=== PATIENT | male | born 1955 | race African-American/Black ===

== ENCOUNTER 2021-02-19 13:31 | Inpatient (IN) | payer MEDICARE, MEDICAID ==
[~2021-02-19] VITALS: Ht 190.5 cm; Wt 68.9 kg
[2021-02-19] MEDS ORDERED: SODIUM CHLORIDE 0.9% 1000ML BAG (SEPSIS BOLUS) IV ONE (14:00)
[2021-02-19 14:17] LABS: BG CARBOXYHEMOGLOBIN 2.1 % (0.5-1.5); BG DEOXYHEMOGLOBIN 3.6 % (0.0-5.0); BG FRACTION INSPIRED OXYGEN 21; BG HCO3 ACT 20.8 mmol/L (22.0-26.0); BG METHEMOGLOBIN 0.2 % (0.0-1.5); BG OXYGEN SATURATION 96.3 % (92.0-98.5); BG OXYHEMOGLOBIN 94.1 % (94.0-97.0); BG PCO2 33.6 mmHg (35.0-45.0); BG PH 7.409 (7.350-7.450); BG PO2 86.6 mmHg (75.0-100.0); BG SAMPLE SITE LEFT BRACHIAL; BG TOTAL HEMOGLOBIN 13.9 g/dL (12.0-18.0); BG VENT MODE ROOM AIR
[2021-02-19 14:28] LABS: BASOPHILS % 0.7 % (0.0-2.0); EOSINOPHILS % 1.1 % (0.0-5.0); HEMOGLOBIN. 13.8 g/dL (14.0-18.0); LYMPHOCYTES % 16.8 % (20.0-50.0); MEAN CORPUSCULAR HEMOGLOBIN 29.8 pg (28.0-32.0); MEAN CORPUSCULAR VOLUME 90.7 fL (80.0-94.0); MEAN PLATELET VOLUME 8.6 fl (7.4-10.4); MONOCYTES % 6.7 % (2.0-8.0); NEUTROPHILS % 74.7 % (40.0-76.0); PLATELET 288 x1000/uL (130-400); RED BLOOD CELL COUNT 4.63 mill/uL (4.7-6.1); RED CELL DISTRIBUTION WIDTH 14.6 % (11.6-14.6)
[2021-02-19 14:30] LABS: CHLORIDE 96 mEq/L (98-107); CLARITY URINE CLEAR (CLEAR); COLOR URINE YELLOW (YELLOW); KETONES URINE NEGATIVE (NEGATIVE); LEUKOCYTE ESTERASE URINE NEGATIVE (NEGATIVE); NITRITE URINE NEGATIVE (NEGATIVE); OCCULT BLOOD URINE NEGATIVE (NEGATIVE); PH URINE 5.5 (4.5-8.0); PROTEIN URINE NEGATIVE (NEGATIVE); UROBILINOGEN URINE 0.2 E.U./dL (0.2-1.0)
[2021-02-19 14:34] LABS: ETHANOL BLOOD < 10 mg/dL
[2021-02-19 14:40] LABS: PROTHROMBIN TIME 10.3 sec (9.6-11.0)
[2021-02-19] MEDS ORDERED: INSULIN REGULAR (HUMULIN R) 300UNITS/3ML VIAL IV SCH (15:00)
[2021-02-19] MEDS ORDERED: HYDROCODONE/ACETAMINOPHEN 10/325MG TABLET PO ONE (17:15)
[2021-02-19] MEDS ORDERED: ONDANSETRON HCL 4MG/2ML INJ IV PRN (18:00)
[2021-02-19] MEDS ORDERED: IPRATROPIUM/ALBUTEROL 0.5-3(2.5)MG/3ML NEB HHN PRN (18:00)
[2021-02-19] MEDS: SODIUM CHLORIDE 0.9% 1,000 ML IV SCH (19:06)
[2021-02-19 21:45] VITALS: BP 164/110
[2021-02-19 22:00] VITALS: BP 164/110
[2021-02-19] MEDS ORDERED: DEXTROSE 50% WATER 50ML SYRINGE IV PRN (22:15)
[2021-02-19] MEDS: BLOOD SUGAR DIAGNOSTIC STRIP TEST SCH (22:55)
[2021-02-19] MEDS: AMLODIPINE 5MG TABLET PO SCH (22:57)
[2021-02-19] MEDS: INSULIN GLARGINE UD 100 UNITS/ML SYR SUBCUT SCH (23:04)
[2021-02-19] MEDS: INSULIN LISPRO 100 UNITS/ML SUBCUT SCH (23:05)
[2021-02-19] MEDS ORDERED: HYDR-4350 MT (23:26)
[2021-02-19] MEDS: CLONIDINE 0.1MG TABLET PO PRN (23:53)
[2021-02-20] MEDS: ACETAMINOPHEN 325MG TABLET PO PRN (01:46)
[2021-02-20 04:00] VITALS: BP 158/112
[2021-02-20 06:20] LABS: BASOPHILS % 0.6 % (0.0-2.0); EOSINOPHILS % 2.8 % (0.0-5.0); HEMATOCRIT. 38.4 % (42.0-52.0); HEMOGLOBIN. 13.3 g/dL (14.0-18.0); LYMPHOCYTES % 17.5 % (20.0-50.0); MEAN CORPUSCULAR HEMOGLOBIN 30.4 pg (28.0-32.0); MEAN CORPUSCULAR VOLUME 87.9 fL (80.0-94.0); MEAN PLATELET VOLUME 8.5 fl (7.4-10.4); MONOCYTES % 5.4 % (2.0-8.0); NEUTROPHILS % 73.7 % (40.0-76.0); PLATELET 246 x1000/uL (130-400); RED BLOOD CELL COUNT 4.37 mill/uL (4.7-6.1); RED CELL DISTRIBUTION WIDTH 14.5 % (11.6-14.6)
[2021-02-20 06:26] LABS: CHLORIDE 110 mEq/L (98-107)
[2021-02-20] MEDS: BLOOD SUGAR DIAGNOSTIC STRIP TEST SCH ×4 (06:30→20:57)
[2021-02-20 06:40] LABS: LDL CHOLESTEROL 96 mg/dL (5-100)
[2021-02-20 06:42] LABS: HDL CHOLESTEROL 50 mg/dL (40-59)
[2021-02-20] MEDS: INSULIN LISPRO 100 UNITS/ML SUBCUT SCH ×4 (07:19→20:57)
[2021-02-20 08:00] VITALS: BP 145/111
[2021-02-20 08:01] LABS: *AMPHETAMINES SCREEN URINE NEGATIVE (NEGATIVE); *BARBITURATES SCREEN URINE NEGATIVE (NEGATIVE); *BENZODIAZEPINES SCREEN URINE NEGATIVE (NEGATIVE); *COCAINE SCREEN URINE NEGATIVE (NEGATIVE)
[2021-02-20 08:02] LABS: CANNABINOID URINE SCREEN PRESUMTIVE POSITIVE (NEGATIVE); METHADONE URINE SCREEN NEGATIVE (NEGATIVE); OPIATES URINE SCREEN NEGATIVE (NEGATIVE); PHENCYCLIDINE URINE SCREEN NEGATIVE (NEGATIVE)
[2021-02-20] MEDS ORDERED: INSULIN LISPRO 100 UNITS/ML SUBCUT SCH (08:20)
[2021-02-20] MEDS ORDERED: BLOOD SUGAR DIAGNOSTIC STRIP TEST SCH (09:00)
[2021-02-20] MEDS: AMLODIPINE 5MG TABLET PO SCH ×2 (09:36→20:50)
[2021-02-20] MEDS: INSULIN GLARGINE UD 100 UNITS/ML SYR SUBCUT SCH ×2 (09:40→23:00)
[2021-02-20] MEDS ORDERED: POTASSIUM CHLORIDE 20MEQ/PACKET PO SCH (11:00)
[2021-02-20] MEDS: HYDROCODONE/ACETAMINOPHEN 10/325MG TABLET PO PRN ×2 (11:27→20:50)
[2021-02-20 12:00] VITALS: BP 168/108
[2021-02-20] MEDS: CLONIDINE 0.1MG TABLET PO PRN (12:23)
[2021-02-20] MEDS: BENAZEPRIL 10MG TABLET PO SCH (14:15)
[2021-02-20 16:00] VITALS: BP 139/84
[2021-02-20 20:00] VITALS: BP 134/68
[2021-02-20] MEDS: SODIUM CHLORIDE 0.9% 1,000 ML IV SCH (20:49)
[2021-02-21] VITALS: BP 137/92
[2021-02-21 04:00] VITALS: BP 153/95
[2021-02-21] MEDS: HYDROCODONE/ACETAMINOPHEN 10/325MG TABLET PO PRN ×3 (04:18→21:12)
[2021-02-21] MEDS: INSULIN LISPRO 100 UNITS/ML SUBCUT SCH ×4 (06:52→21:07)
[2021-02-21] MEDS: BLOOD SUGAR DIAGNOSTIC STRIP TEST SCH ×4 (06:52→21:09)
[2021-02-21 08:00] VITALS: BP 135/96
[2021-02-21] MEDS: BENAZEPRIL 10MG TABLET PO SCH (08:38)
[2021-02-21] MEDS: AMLODIPINE 5MG TABLET PO SCH ×2 (08:38→21:08)
[2021-02-21] MEDS: SODIUM CHLORIDE 0.9% 1,000 ML IV SCH (08:39)
[2021-02-21] MEDS: INSULIN GLARGINE UD 100 UNITS/ML SYR SUBCUT SCH ×2 (09:26→21:08)
[2021-02-21] MEDS ORDERED: LANTUSUD SUBCUT ×2 (09:37)
[2021-02-21] MEDS ORDERED: AMLO5TAB88 PO (09:37)
[2021-02-21] MEDS ORDERED: METF-414 MT (09:37)
[2021-02-21] MEDS ORDERED: BENA10TA74 PO (09:37)
[2021-02-21 12:00] VITALS: BP 151/90
[2021-02-21 16:00] VITALS: BP 123/73
[2021-02-21] MEDS: ACETAMINOPHEN 325MG TABLET PO PRN (18:12)
[2021-02-21 20:00] VITALS: BP 137/84
[2021-02-22] VITALS: BP 140/92
[2021-02-22] MEDS: SODIUM CHLORIDE 0.9% 1,000 ML IV SCH ×2 (02:42→12:18)
[2021-02-22 04:00] VITALS: BP 163/110
[2021-02-22] MEDS: HYDROCODONE/ACETAMINOPHEN 10/325MG TABLET PO PRN ×3 (04:07→15:27)
[2021-02-22] MEDS: CLONIDINE 0.1MG TABLET PO PRN (04:08)
[2021-02-22] MEDS: BLOOD SUGAR DIAGNOSTIC STRIP TEST SCH ×2 (05:58→11:04)
[2021-02-22] MEDS: INSULIN LISPRO 100 UNITS/ML SUBCUT SCH ×2 (06:05→12:17)
[2021-02-22 08:00] VITALS: BP 136/85
[2021-02-22] MEDS: BENAZEPRIL 10MG TABLET PO SCH (08:35)
[2021-02-22] MEDS: AMLODIPINE 5MG TABLET PO SCH (08:35)
[2021-02-22] MEDS: INSULIN GLARGINE UD 100 UNITS/ML SYR SUBCUT SCH (09:16)
[2021-02-22 12:00] VITALS: BP 141/88
[2021-02-22] MEDS ORDERED: LANTUSUD SUBCUT (14:17)
[2021-02-22 15:01] VITALS: BP 141/88
[2021-02-22 15:27] VITALS: BP 141/88
[2021-02-22] MEDS ORDERED: INSULIN GLARGINE UD 100 UNITS/ML SYR SUBCUT SCH (22:00)
== END 2021-02-22 15:45 | disposition home or self-care (01) | DRG 638 ==
LOC: ER 14:10 → 5WST 17:37 → EDBEDREQTM 17:41 → EDBEDREQSVC 17:41 → EDBEDREQ 17:41 → ENRESERV 19:47
PROVIDERS: ADMIT Internal Medicine; ATTEND Internal Medicine
DX: E11.00 Type 2 diabetes mellitus with hyperosmolarity without nonketotic hyperglycemic-hyperosmolar coma (NKHHC) (principal); E87.1 Hypo-osmolality and hyponatremia; E87.2 Acidosis; R65.10 Systemic inflammatory response syndrome (SIRS) of non-infectious origin without acute organ dysfunction; E11.65 Type 2 diabetes mellitus with hyperglycemia; F17.200 Nicotine dependence, unspecified, uncomplicated; Z20.822 Contact with and (suspected) exposure to COVID-19; I10 Essential (primary) hypertension; G89.29 Other chronic pain; F32.9 Major depressive disorder, single episode, unspecified; J45.909 Unspecified asthma, uncomplicated; T38.3X6A Underdosing of insulin and oral hypoglycemic [antidiabetic] drugs, initial encounter; M54.9 Dorsalgia, unspecified; Z79.4 Long term (current) use of insulin; Z91.14 Patient's other noncompliance with medication regimen; Z59.0 Homelessness; Y92.89 Other specified places as the place of occurrence of the external cause
CPT/HCPCS: 36415; 36600; 71045; 80053; 80061; 80305; 80320; 81003; 82375; 82805; 82962; 83036; 83605; 83880; 84145; 84443; 84484; 85025; 87426; 93005; 93970; 99291; J1815; J7030; G0480

== ENCOUNTER 2021-07-15 18:55 | Inpatient (IN) | payer MEDICARE, MEDICAID ==
[~2021-07-15] VITALS: Ht 188 cm; Wt 63.5 kg
[~2021-07-15 18:55] MED LIST: AMLO5TAB88 PO; BENA10TA74 PO; HYDR-4350 MT; LANTUSUD SUBCUT; METF-414 MT
[2021-07-15] MEDS ORDERED: HYDROCODONE/ACETAMINOPHEN 5/325MG TABLET PO STA (19:20)
[2021-07-15] MEDS ORDERED: SODIUM CHLORIDE 0.9% 1,000 ML IV ONE (19:30)
[2021-07-15 20:07] LABS: BASOPHILS % 0.8 % (0.0-2.0); EOSINOPHILS % 0.7 % (0.0-5.0); HEMATOCRIT. 41.1 % (42.0-52.0); HEMOGLOBIN. 14.1 g/dL (14.0-18.0); LYMPHOCYTES % 21.9 % (20.0-50.0); MEAN CORPUSCULAR HEMOGLOBIN 30.4 pg (28.0-32.0); MEAN CORPUSCULAR VOLUME 88.7 fL (80.0-94.0); MONOCYTES % 7.9 % (2.0-8.0); NEUTROPHILS % 68.7 % (40.0-76.0); PLATELET 296 x1000/uL (130-400); RED BLOOD CELL COUNT 4.64 mill/uL (4.7-6.1); RED CELL DISTRIBUTION WIDTH 15.6 % (11.6-14.6)
[2021-07-15 20:13] LABS: CHLORIDE 100 mEq/L (98-107)
[2021-07-15] MEDS ORDERED: IOHEXOL-350 100 ML BOTTLE ONE (22:02)
[2021-07-16] MEDS ORDERED: INSULIN LISPRO 100 UNITS/ML SUBCUT SCH (00:15)
[2021-07-16 01:05] VITALS: BP 139/91
[2021-07-16] MEDS ORDERED: DEXTROSE 50% WATER 50ML SYRINGE IV PRN (03:30)
[2021-07-16] MEDS ORDERED: ACETAMINOPHEN 325MG TABLET PO PRN (03:30)
[2021-07-16 04:00] VITALS: BP 136/83
[2021-07-16] MEDS ORDERED: NALOXONE HCL 0.4 MG/ML 1ML VIAL IV PRN (04:15)
[2021-07-16] MEDS: BLOOD SUGAR DIAGNOSTIC STRIP TEST SCH ×4 (05:30→19:54)
[2021-07-16] MEDS: INSULIN LISPRO 100 UNITS/ML SUBCUT SCH ×4 (05:53→20:40)
[2021-07-16] MEDS: HYDROCODONE/ACETAMINOPHEN 5/325MG TABLET PO PRN ×4 (06:23→23:57)
[2021-07-16 08:00] VITALS: BP 156/101
[2021-07-16 08:05] LABS: *AMPHETAMINES SCREEN URINE NEGATIVE (NEGATIVE); *BARBITURATES SCREEN URINE NEGATIVE (NEGATIVE); *BENZODIAZEPINES SCREEN URINE NEGATIVE (NEGATIVE); *COCAINE SCREEN URINE NEGATIVE (NEGATIVE)
[2021-07-16 08:06] LABS: CANNABINOID URINE SCREEN PRESUMTIVE POSITIVE (NEGATIVE); METHADONE URINE SCREEN NEGATIVE (NEGATIVE); OPIATES URINE SCREEN PRESUMTIVE POSITIVE (NEGATIVE); PHENCYCLIDINE URINE SCREEN NEGATIVE (NEGATIVE)
[2021-07-16] MEDS: BENAZEPRIL 10MG TABLET PO SCH (09:04)
[2021-07-16] MEDS: AMLODIPINE 5MG TABLET PO SCH ×2 (09:05→20:57)
[2021-07-16] MEDS: METFORMIN HCL 500MG TABLET PO SCH ×2 (09:05→18:40)
[2021-07-16 12:00] VITALS: BP 135/96
[2021-07-16] MEDS: INSULIN GLARGINE UD 100 UNITS/ML SYR SUBCUT SCH ×2 (12:17→21:00)
[2021-07-16] MEDS ORDERED: IPRATROPIUM/ALBUTEROL 0.5-3(2.5)MG/3ML NEB HHN PRN (13:00)
[2021-07-16 16:00] VITALS: BP 127/81
[2021-07-16] MEDS ORDERED: ALBU18HF2 IH (18:16)
[2021-07-16] MEDS ORDERED: FLUT1DIS3 INH (18:16)
[2021-07-16 20:00] VITALS: BP 146/105
[2021-07-17] VITALS: BP 147/91
[2021-07-17 04:00] VITALS: BP 120/80
[2021-07-17] MEDS: BLOOD SUGAR DIAGNOSTIC STRIP TEST SCH ×2 (05:20→12:25)
[2021-07-17] MEDS: INSULIN LISPRO 100 UNITS/ML SUBCUT SCH ×2 (06:01→13:05)
[2021-07-17] MEDS: HYDROCODONE/ACETAMINOPHEN 5/325MG TABLET PO PRN (06:37)
[2021-07-17 08:00] VITALS: BP 137/95
[2021-07-17] MEDS: METFORMIN HCL 500MG TABLET PO SCH (08:47)
[2021-07-17] MEDS: AMLODIPINE 5MG TABLET PO SCH (08:47)
[2021-07-17] MEDS: BENAZEPRIL 10MG TABLET PO SCH (08:48)
[2021-07-17] MEDS: INSULIN GLARGINE UD 100 UNITS/ML SYR SUBCUT SCH (09:47)
[2021-07-17 11:32] VITALS: BP 105/111
[2021-07-17 12:00] VITALS: BP 156/111
[2021-07-17] MEDS ORDERED: HYDRALAZINE HCL 100MG TABLET PO SCH (13:00)
[2021-07-17] MEDS ORDERED: HYDR-4001 MT (14:00)
[2021-07-18] MEDS ORDERED: HYDR-4001 MT ×3 (02:05→02:12)
[2021-07-18] MEDS ORDERED: HYDR-4009 MT (02:28)
== END 2021-07-17 13:30 | disposition home or self-care (01) | DRG 190 ==
LOC: ER 18:55 → EDBEDREQTM 23:02 → EDBEDREQ 23:02 → ENRESERV 23:35 → 8WST 07-16 01:57
PROVIDERS: ADMIT Internal Medicine; ATTEND Internal Medicine
DX: J44.0 Chronic obstructive pulmonary disease with (acute) lower respiratory infection (principal); J18.9 Pneumonia, unspecified organism; E87.1 Hypo-osmolality and hyponatremia; I10 Essential (primary) hypertension; E11.9 Type 2 diabetes mellitus without complications; F12.90 Cannabis use, unspecified, uncomplicated; G89.29 Other chronic pain; M54.9 Dorsalgia, unspecified; F32.A Depression, unspecified; Z60.2 Problems related to living alone; F17.210 Nicotine dependence, cigarettes, uncomplicated; Z71.6 Tobacco abuse counseling; I25.2 Old myocardial infarction
CPT/HCPCS: 36415; 71045; 71275; 80053; 80305; 82962; 83036; 83605; 83880; 84443; 84484; 85025; 85379; 93005; 99285; J1815; J7030; Q9967

== ENCOUNTER 2021-07-17 20:41 | Emergency (ER) | payer MEDICAID, MEDICARE ==
[~2021-07-17] VITALS: Ht 188 cm; Wt 69.0 kg
[~2021-07-17 20:41] MED LIST changes: +ALBU18HF2 IH; +FLUT1DIS3 INH; +HYDR-4001 MT
[2021-07-17] MEDS ORDERED: ASPIRIN 81MG TABLET PO ONE (21:30)
[2021-07-17] MEDS ORDERED: IPRATROPIUM BROMIDE (0.02%) 0.5MG/2.5ML NEB HHN STA (22:13)
[2021-07-17] MEDS ORDERED: HYDROCODONE/ACETAMINOPHEN 10/325MG TABLET PO ONE (22:15)
[2021-07-17 23:07] VITALS: BP 121/90
[2021-07-18 00:15] LABS: BASOPHILS % 0.6 % (0.0-2.0); EOSINOPHILS % 0.6 % (0.0-5.0); HEMATOCRIT. 42.7 % (42.0-52.0); HEMOGLOBIN. 14.3 g/dL (14.0-18.0); LYMPHOCYTES % 16.1 % (20.0-50.0); MEAN CORPUSCULAR HEMOGLOBIN 29.5 pg (28.0-32.0); MEAN CORPUSCULAR VOLUME 87.9 fL (80.0-94.0); MEAN PLATELET VOLUME 7.7 fl (7.4-10.4); MONOCYTES % 8.4 % (2.0-8.0); NEUTROPHILS % 74.3 % (40.0-76.0); PLATELET 299 x1000/uL (130-400); RED BLOOD CELL COUNT 4.86 mill/uL (4.7-6.1); RED CELL DISTRIBUTION WIDTH 15.5 % (11.6-14.6)
[2021-07-18 00:20] LABS: CHLORIDE 103 mEq/L (98-107)
[2021-07-18] MEDS: ALBUTEROL (0.083%) 2.5MG/3ML NEB HHN SCH ×2 (01:03→01:37)
[2021-07-18] MEDS ORDERED: ALBUTEROL (0.083%) 2.5MG/3ML NEB ONE (01:44)
[2021-07-18] MEDS ORDERED: HYDR-4001 MT ×3 (02:05→02:12)
[2021-07-18] MEDS ORDERED: HYDR-4009 MT (02:28)
== END 2021-07-18 02:37 | disposition home or self-care (01) ==
LOC: ER 20:41
DX: J44.1 Chronic obstructive pulmonary disease with (acute) exacerbation (principal); I10 Essential (primary) hypertension; E11.9 Type 2 diabetes mellitus without complications; M54.89 Other dorsalgia; J98.11 Atelectasis; M79.18 Myalgia, other site; G89.29 Other chronic pain; Z98.890 Other specified postprocedural states
CPT/HCPCS: 36415; 71045; 80053; 83880; 84484; 85025; 93005; 94640; 99285

== ENCOUNTER 2021-07-22 17:20 | Emergency (ER) | payer MEDICARE, MEDICAID ==
[~2021-07-22] VITALS: Ht 188 cm; Wt 69.0 kg
[~2021-07-22 17:20] MED LIST changes: +HYDR-4009 MT
[2021-07-22] MEDS ORDERED: HYDR-4009 MT (20:05)
[2021-07-22] MEDS ORDERED: NALO4SPR BOTHNSTRLS (20:06)
[2021-07-22] MEDS ORDERED: HYDROCODONE/ACETAMINOPHEN 5/325MG TABLET PO ONE (20:15)
[2021-07-22 21:53] VITALS: BP 126/74
== END 2021-07-22 21:53 | disposition home or self-care (01) ==
LOC: ER 17:20
DX: M54.59 Other low back pain (principal)
CPT/HCPCS: 72100; 99283

== ENCOUNTER 2021-08-07 10:24 | Emergency (ER) | payer MEDICARE, MEDICAID ==
[~2021-08-07] VITALS: Ht 188 cm; Wt 68.0 kg
[~2021-08-07 10:24] MED LIST changes: +NALO4SPR BOTHNSTRLS
[2021-08-07 10:28] VITALS: BP 144/103
[2021-08-07] MEDS ORDERED: TOPUD MT (10:34)
[2021-08-07] MEDS ORDERED: HYDROCODONE/ACETAMINOPHEN 5/325MG TABLET PO ONE (10:45)
== END 2021-08-07 11:38 | disposition home or self-care (01) ==
LOC: ER 10:24
DX: G89.29 Other chronic pain (principal); M54.89 Other dorsalgia
CPT/HCPCS: 99282

== ENCOUNTER 2021-11-05 08:59 | Emergency (ER) | payer MEDICARE, MEDICAID ==
[~2021-11-05] VITALS: Ht 172.7 cm; Wt 70.0 kg
[~2021-11-05 08:59] MED LIST changes: +TOPUD MT
[2021-11-05] MEDS ORDERED: HYDROCODONE/ACETAMINOPHEN 10/325MG TABLET PO ONE (09:15)
[2021-11-05] MEDS ORDERED: METHOCARBAMOL 500MG TABLET PO ONE (11:00)
[2021-11-05 14:15] LABS: BASOPHILS % 0.9 % (0.0-2.0); EOSINOPHILS % 1.1 % (0.0-5.0); HEMATOCRIT. 41.1 % (42.0-52.0); HEMOGLOBIN. 13.9 g/dL (14.0-18.0); LYMPHOCYTES % 20.7 % (20.0-50.0); MEAN CORPUSCULAR HEMOGLOBIN 29.2 pg (28.0-32.0); MEAN CORPUSCULAR VOLUME 86.5 fL (80.0-94.0); MEAN PLATELET VOLUME 7.1 fl (7.4-10.4); MONOCYTES % 8.6 % (2.0-8.0); NEUTROPHILS % 68.7 % (40.0-76.0); PLATELET 278 x1000/uL (130-400); RED BLOOD CELL COUNT 4.75 mill/uL (4.7-6.1); RED CELL DISTRIBUTION WIDTH 14.7 % (11.6-14.6)
[2021-11-05 14:21] LABS: CHLORIDE 102 mEq/L (98-107)
[2021-11-05 14:27] LABS: C REACTIVE PROTEIN QUANT 0.5 mg/L (0.0-3.0)
[2021-11-05] MEDS ORDERED: HYDR-4009 MT (15:12)
[2021-11-05] MEDS ORDERED: ACETAMINOPHEN 325MG TABLET PO ONE (17:30)
[2021-11-05] MEDS ORDERED: HYDRALAZINE 20MG/ML VIAL IV ONE (19:15)
[2021-11-05 19:17] VITALS: BP 170/123
== END 2021-11-05 20:48 ==
LOC: ER 08:59
DX: G89.29 Other chronic pain (principal); M25.551 Pain in right hip; I10 Essential (primary) hypertension; E11.9 Type 2 diabetes mellitus without complications; J45.909 Unspecified asthma, uncomplicated; W18.39XA Other fall on same level, initial encounter; Y93.89 Activity, other specified; Y92.89 Other specified places as the place of occurrence of the external cause; Y99.8 Other external cause status; Z79.899 Other long term (current) drug therapy
CPT/HCPCS: 36415; 72125; 73502; 80053; 85025; 85651; 86140; 96374; 99285; J0360

== ENCOUNTER 2024-10-25 15:13 | Inpatient (IN) | payer BC, MEDICAID, MEDICARE ==
[~2024-10-25] VITALS: Ht 185.4 cm; Wt 61.7 kg
[2024-10-25 15:54] LABS: BASOPHILS % 0.5 % (0.0-2.0); EOSINOPHILS % 0.3 % (0.0-5.0); HEMATOCRIT. 46.5 % (42.0-52.0); HEMOGLOBIN. 15.7 g/dL (14.0-18.0); LYMPHOCYTES % 13.8 % (20.0-50.0); MEAN CORPUSCULAR HEMOGLOBIN 30.1 pg (28.0-32.0); MEAN CORPUSCULAR HGB CONC 33.8 g/dL (31.0-37.0); MEAN PLATELET VOLUME 8.3 fl (7.4-10.4); MONOCYTES % 7.1 % (2.0-8.0); NEUTROPHILS % 78.3 % (40.0-76.0); PLATELET 292 x1000/uL (130-400); RED BLOOD CELL COUNT 5.23 mill/uL (4.7-6.1); WHITE BLOOD COUNT 10.7 x1000/uL (4.5-11.0)
[2024-10-25 16:02] LABS: CHLORIDE 86 mEq/L (98-107); POTASSIUM 3.1 mEq/L (3.5-5.1); SODIUM 127 mEq/L (136-145)
[2024-10-25 16:03] LABS: CALCIUM 9.6 mg/dL (8.7-10.4); CARBON DIOXIDE 31 mEq/L (21-32)
[2024-10-25 16:08] LABS: CREATININE 1.4 mg/dL (0.6-1.3); GLUCOSE 337 mg/dL (70-105); UREA NITROGEN BLOOD 14 mg/dL (9-23)
[2024-10-25] MEDS: INSULIN REGULAR (HUMULIN R) 1000UNITS/10ML VIAL SUBCUT SCH (16:50)
[2024-10-25] MEDS: SODIUM CHLORIDE 0.9% 1,000 ML IV ONE (16:51)
[2024-10-25] MEDS: METFORMIN HCL 500MG TABLET PO SCH (17:06)
[2024-10-25 17:11] LABS: TROPONIN I HIGH SENSITIVITY 18 ng/L (3.0-53)
[2024-10-25] MEDS: ACETAMINOPHEN 650MG/20.3ML UDC PO NR (17:13)
[2024-10-25 18:20] VITALS: PULSE 97; RESP 20; O2SAT 100
[2024-10-25] MEDS: IPRATROPIUM/ALBUTEROL 0.5-3(2.5)MG/3ML NEB HHN NR (18:20)
[2024-10-25] MEDS ORDERED: POTASSIUM CHLORIDE 40 MEQ in DEXT 5% WATER 230 ML IV ONE (19:30)
[2024-10-25] MEDS ORDERED: CLONIDINE 0.1MG TABLET PO PRN (19:30)
[2024-10-25] MEDS ORDERED: MAGNESIUM/ALUMINUM HYDROXIDE/SIMETHICONE 30ML UDC PO PRN (19:30)
[2024-10-25] MEDS ORDERED: DOCUSATE SODIUM 100MG CAPSULE PO PRN (19:30)
[2024-10-25] MEDS ORDERED: IPRATROPIUM/ALBUTEROL 0.5-3(2.5)MG/3ML NEB HHN PRN (19:30)
[2024-10-25] MEDS ORDERED: DEXTROSE 50% WATER 50ML SYRINGE IV PRN (19:30)
[2024-10-25] MEDS ORDERED: ACETAMINOPHEN 325MG TABLET PO PRN (19:30)
[2024-10-25] MEDS ORDERED: ONDANSETRON HCL 4MG/2ML INJ IV PRN (19:30)
[2024-10-25 19:38] LABS: GLUCOSE URINE 3+ (NEGATIVE); KETONES URINE NEGATIVE (NEGATIVE)
[2024-10-25 19:58] LABS: BETA HYDROXYBUTYRATE 0.8 mMol/L (0.0-0.3); PHOSPHORUS 3.3 mg/dL (2.5-4.9)
[2024-10-25] MEDS ORDERED: SODIUM CHLORIDE 0.9% 1,000 ML IV SCH (20:00)
[2024-10-25] MEDS ORDERED: NALOXONE HCL 0.4MG/ML VIAL IV PRN (20:30)
[2024-10-25 20:39] LABS: CLARITY URINE CLEAR (CLEAR); COLOR URINE YELLOW (YELLOW); PH URINE 5.5 (4.5-8.0)
[2024-10-25 20:40] LABS: LEUKOCYTE ESTERASE URINE NEGATIVE (NEGATIVE); NITRITE URINE NEGATIVE (NEGATIVE); OCCULT BLOOD URINE NEGATIVE (NEGATIVE); PROTEIN URINE NEGATIVE (NEGATIVE)
[2024-10-25 20:42] LABS: BACTERIA URINE TRACE; RBC URINE 0-2 /hpf (0-2); SQUAMOUS EPITHELIAL CELL URINE RARE /lpf (RARE/1+); WBC URINE 0-2 /hpf (0-2)
[2024-10-25] MEDS: HYDROCODONE/ACETAMINOPHEN 7.5/325MG TABLET PO PRN (20:44)
[2024-10-25] MEDS: BLOOD SUGAR DIAGNOSTIC STRIP TEST SCH (21:00)
[2024-10-25 22:02] VITALS: BP 120/82; PULSE 18; TEMP 36.5; O2SAT 96
[2024-10-25] MEDS ORDERED: IOHEXOL-300 100 ML BOTTLE ONE (22:49)
[2024-10-25] MEDS: AMLODIPINE 5MG TABLET PO SCH (22:56)
[2024-10-25] MEDS: FAMOTIDINE 20MG TABLET PO SCH (22:56)
[2024-10-25] MEDS: KCL 20MEQ/100ML X 2 FOR TOTAL KCL 40MEQ/200ML IV SCH (22:57)
[2024-10-25] MEDS: SODIUM CHLORIDE 0.9% 1,000 ML IV SCH (22:58)
[2024-10-25] MEDS: INSULIN LISPRO 100 UNITS/ML SUBCUT SCH (23:04)
[2024-10-25 23:36] LABS: TRIGLYCERIDE 82 mg/dL (0-150)
[2024-10-25 23:37] LABS: LDL CHOLESTEROL 58 mg/dL (5-100)
[2024-10-25 23:38] LABS: ALANINE AMINOTRANSFERASE 8 IU/L (10-49); ASPARTATE AMINOTRANSFERASE 15 IU/L (<34); BILIRUBIN DIRECT 0.4 mg/dL (<=3.0); BILIRUBIN TOTAL 0.8 mg/dL (0.1-1.0); CHOLESTEROL 123 mg/dL (<200); HDL CHOLESTEROL 29 mg/dL (>55); PROTEIN TOTAL 6.5 g/dL (6.0-8.3)
[2024-10-25 23:39] LABS: CREATINE KINASE MB FRACTION 0.8 ng/mL (0.5-3.6); TROPONIN I HIGH SENSITIVITY 17 ng/L (3.0-53)
[2024-10-25 23:51] VITALS: BP 120/82; PULSE 89; RESP 18; TEMP 36.5
[2024-10-26] VITALS: BP 130/79; PULSE 100; RESP 18; TEMP 36.6; O2SAT 97
[2024-10-26] MEDS ORDERED: METO-539 MT (00:46)
[2024-10-26] MEDS ORDERED: PANT40TA51 PO (00:49)
[2024-10-26] MEDS ORDERED: POTA15TA11 PO (00:50)
[2024-10-26] MEDS ORDERED: AMIN30LI2 PO (00:50)
[2024-10-26] MEDS ORDERED: ASPI-1497 PO (00:53)
[2024-10-26] MEDS ORDERED: ATOR40TA70 PO (00:53)
[2024-10-26] MEDS ORDERED: INSU100I24 SQ (00:55)
[2024-10-26] MEDS ORDERED: FURO40TA5 PO (00:55)
[2024-10-26] MEDS ORDERED: INSU100V33 SQ (00:55)
[2024-10-26] MEDS ORDERED: METH-774 MT (00:55)
[2024-10-26] MEDS ORDERED: GABA-529 PO (00:55)
[2024-10-26 04:00] VITALS: BP 151/84; PULSE 92; RESP 18; TEMP 36.2; O2SAT 98
[2024-10-26 06:23] LABS: HEMOGLOBIN 13.8 g/dL (14.0-18.0); MEAN CORPUSCULAR HEMOGLOBIN 29.2 pg (28.0-32.0); MEAN CORPUSCULAR HGB CONC 33.7 g/dL (31.0-37.0); MEAN CORPUSCULAR VOLUME 86.6 fL (80.0-94.0); PLATELET 237 x1000/uL (130-400); RED BLOOD CELL COUNT 4.73 mill/uL (4.7-6.1); RED CELL DISTRIBUTION WIDTH 13.9 % (11.6-14.6); WHITE BLOOD COUNT 6.4 x1000/uL (4.5-11.0)
[2024-10-26 06:35] LABS: CARBON DIOXIDE 32 mEq/L (21-32); CHLORIDE 95 mEq/L (98-107); CREATINE KINASE MB FRACTION 0.9 ng/mL (0.5-3.6); POTASSIUM 3.3 mEq/L (3.5-5.1); SODIUM 134 mEq/L (136-145)
[2024-10-26] MEDS: POTASSIUM CHLORIDE 20MEQ/PACKET PO NR (06:35)
[2024-10-26 06:36] LABS: TROPONIN I HIGH SENSITIVITY 18 ng/L (3.0-53)
[2024-10-26 06:37] LABS: CALCIUM 8.8 mg/dL (8.7-10.4)
[2024-10-26 06:41] LABS: CREATININE 0.8 mg/dL (0.6-1.3)
[2024-10-26 06:42] LABS: UREA NITROGEN BLOOD 11 mg/dL (9-23)
[2024-10-26 07:04] LABS: GLUCOSE 146 mg/dL (70-105)
[2024-10-26 08:00] VITALS: BP 152/93; PULSE 87; RESP 18; TEMP 36.5; O2SAT 94
[2024-10-26] MEDS ORDERED: LOTEN PO SCH (09:00)
[2024-10-26] MEDS: LACTULOSE 20G/30ML UDC PO SCH (09:45)
[2024-10-26 10:22] LABS: *AMPHETAMINES SCREEN URINE NEGATIVE (NEGATIVE); *BENZODIAZEPINES SCREEN URINE NEGATIVE (NEGATIVE)
[2024-10-26 10:23] LABS: *BARBITURATES SCREEN URINE NEGATIVE (NEGATIVE); *COCAINE SCREEN URINE NEGATIVE (NEGATIVE); CANNABINOID URINE SCREEN PRESUMPTIVE POSITIVE (NEGATIVE); ECSTASY MDMA SCREEN URINE NEGATIVE (NEGATIVE); METHADONE URINE SCREEN NEGATIVE (NEGATIVE); OPIATES URINE SCREEN PRESUMPTIVE POSITIVE (NEGATIVE); PHENCYCLIDINE URINE SCREEN NEGATIVE (NEGATIVE)
[2024-10-26] MEDS: ENOXAPARIN 40MG/0.4ML SYR SUBCUT SCH (10:42)
[2024-10-26] MEDS: LISINOPRIL 20MG TABLET PO SCH (10:42)
[2024-10-26 12:00] VITALS: BP 147/95; PULSE 92; RESP 17; TEMP 36.6; O2SAT 96
[2024-10-26 16:00] VITALS: BP 128/87; PULSE 93; RESP 18; TEMP 36.6; O2SAT 97
[2024-10-26] MEDS: INSULIN LISPRO 100 UNITS/ML SUBCUT SCH (16:56)
[2024-10-26] MEDS: POLYETHYLENE GLYCOL 3350 (17GM) 1 DOSE PACK PO SCH (17:01)
[2024-10-26 20:00] VITALS: BP 88/55; PULSE 99; RESP 19; TEMP 36.8; O2SAT 95
[2024-10-26] MEDS: INSULIN GLARGINE 100 UNITS/ML SUBCUT SCH (21:58)
[2024-10-27] VITALS: BP 94/63; PULSE 91; RESP 18; TEMP 36.4; O2SAT 98
[2024-10-27] MEDS: ACETAMINOPHEN 325MG TABLET PO PRN (00:54)
[2024-10-27 04:00] VITALS: BP 104/67; PULSE 89; RESP 18; TEMP 36.8; O2SAT 96
[2024-10-27 07:04] LABS: CALCIUM 8.7 mg/dL (8.7-10.4); CHLORIDE 93 mEq/L (98-107); POTASSIUM 3.6 mEq/L (3.5-5.1); SODIUM 131 mEq/L (136-145)
[2024-10-27 07:05] LABS: CARBON DIOXIDE 29 mEq/L (21-32)
[2024-10-27 07:10] LABS: CREATININE 0.9 mg/dL (0.6-1.3); GLUCOSE 224 mg/dL (70-105); UREA NITROGEN BLOOD 11 mg/dL (9-23)
[2024-10-27 07:19] LABS: BASOPHILS % 0.5 % (0.0-2.0); EOSINOPHILS % 1.5 % (0.0-5.0); HEMATOCRIT. 39.3 % (42.0-52.0); HEMOGLOBIN. 13.2 g/dL (14.0-18.0); LYMPHOCYTES % 27.6 % (20.0-50.0); MEAN CORPUSCULAR HEMOGLOBIN 29.4 pg (28.0-32.0); MEAN CORPUSCULAR HGB CONC 33.6 g/dL (31.0-37.0); MEAN CORPUSCULAR VOLUME 87.4 fL (80.0-94.0); MEAN PLATELET VOLUME 8.4 fl (7.4-10.4); MONOCYTES % 6.8 % (2.0-8.0); NEUTROPHILS % 63.6 % (40.0-76.0); PLATELET 232 x1000/uL (130-400); WHITE BLOOD COUNT 6.3 x1000/uL (4.5-11.0)
[2024-10-27 08:00] VITALS: BP 134/83; PULSE 92; RESP 16; TEMP 36.7; O2SAT 100
[2024-10-27] MEDS ORDERED: ASPIRIN 81MG TABLET PO SCH (09:00)
[2024-10-27 12:00] VITALS: BP 126/75; PULSE 90; RESP 16; TEMP 36.6; O2SAT 98
[2024-10-27 16:00] VITALS: BP 139/80; PULSE 96; RESP 18; TEMP 36.4; O2SAT 100
[2024-10-27 20:00] VITALS: BP 103/71; PULSE 114; RESP 20; TEMP 36.4; O2SAT 93
[2024-10-28] VITALS (7 sets, daily range): BP systolic 91–156; BP diastolic 56–94; PULSE 84–100; RESP 17–20; TEMP 36.2–36.6; O2SAT 95–100
[2024-10-28 09:07] LABS: IMMUNOGLOBULIN A 153 mg/dL (61-437); IMMUNOGLOBULIN G 705 mg/dL (603-1613); IMMUNOGLOBULIN M 52 mg/dL (15-143)
[2024-10-28] MEDS: INSULIN LISPRO 100 UNITS/ML SUBCUT SCH (12:45)
[2024-10-28 17:01] LABS: BASOPHILS % 0.5 % (0.0-2.0); EOSINOPHILS % 1.5 % (0.0-5.0); HEMATOCRIT. 40.4 % (42.0-52.0); HEMOGLOBIN. 13.3 g/dL (14.0-18.0); LYMPHOCYTES % 29.2 % (20.0-50.0); MEAN CORPUSCULAR HGB CONC 32.9 g/dL (31.0-37.0); MEAN CORPUSCULAR VOLUME 88.4 fL (80.0-94.0); MEAN PLATELET VOLUME 8.3 fl (7.4-10.4); MONOCYTES % 8.4 % (2.0-8.0); NEUTROPHILS % 60.4 % (40.0-76.0); PLATELET 276 x1000/uL (130-400); RED BLOOD CELL COUNT 4.57 mill/uL (4.7-6.1); RED CELL DISTRIBUTION WIDTH 13.8 % (11.6-14.6); WHITE BLOOD COUNT 5.4 x1000/uL (4.5-11.0)
[2024-10-28 17:10] LABS: CHLORIDE 100 mEq/L (98-107); POTASSIUM 4.5 mEq/L (3.5-5.1); SODIUM 138 mEq/L (136-145)
[2024-10-28 17:11] LABS: CALCIUM 9.5 mg/dL (8.7-10.4); CARBON DIOXIDE 28 mEq/L (21-32)
[2024-10-28 17:16] LABS: CREATININE 0.7 mg/dL (0.6-1.3); GLUCOSE 124 mg/dL (70-105)
[2024-10-28 17:17] LABS: UREA NITROGEN BLOOD 8 mg/dL (9-23)
== END 2024-10-28 18:40 | disposition home health service (06) | DRG 918 ==
LOC: ER 15:13 → EDBEDREQTM 18:53 → EDBEDREQSVC 18:53 → EDBEDREQ 18:53 → 8WST 21:57
PROVIDERS: ADMIT Hospitalist; ATTEND Hospitalist
DX: T40.601A Poisoning by unspecified narcotics, accidental (unintentional), initial encounter (principal); N17.9 Acute kidney failure, unspecified; E87.1 Hypo-osmolality and hyponatremia; R64 Cachexia; Z68.1 Body mass index [BMI] 19.9 or less, adult; R53.1 Weakness; E86.0 Dehydration; E87.6 Hypokalemia; R91.1 Solitary pulmonary nodule; R62.7 Adult failure to thrive; J44.89 Other specified chronic obstructive pulmonary disease; K59.03 Drug induced constipation; G89.29 Other chronic pain; E11.65 Type 2 diabetes mellitus with hyperglycemia; I25.10 Atherosclerotic heart disease of native coronary artery without angina pectoris; Z85.46 Personal history of malignant neoplasm of prostate; D64.9 Anemia, unspecified; N18.9 Chronic kidney disease, unspecified; E11.22 Type 2 diabetes mellitus with diabetic chronic kidney disease; I12.9 Hypertensive chronic kidney disease with stage 1 through stage 4 chronic kidney disease, or unspecified chronic kidney disease; F17.210 Nicotine dependence, cigarettes, uncomplicated; N40.0 Benign prostatic hyperplasia without lower urinary tract symptoms; J47.9 Bronchiectasis, uncomplicated; T40.2X5A Adverse effect of other opioids, initial encounter; Z71.6 Tobacco abuse counseling; Z79.4 Long term (current) use of insulin; Z79.51 Long term (current) use of inhaled steroids; Z79.84 Long term (current) use of oral hypoglycemic drugs; Z79.899 Other long term (current) drug therapy; Z99.3 Dependence on wheelchair; Z99.81 Dependence on supplemental oxygen; Y92.89 Other specified places as the place of occurrence of the external cause
CPT/HCPCS: 36415; 71045; 71260; 74176; 80048; 80061; 80076; 80305; 81003; 82010; 82306; 82553; 82784; 82962; 83036; 83735; 83880; 83930; 83935; 84100; 84134; 84153; 84484; 85025; 85027; 86334; 93005; 93306; 93970; 94664; 97162; 97166; 99285; C1893; J1650; J1815; J3480; Q9967

== ENCOUNTER 2025-01-02 13:51 | Inpatient (IN) | payer MEDICARE, MEDICAID ==
[~2025-01-02] VITALS: Ht 190.5 cm; Wt 59.0 kg
[~2025-01-02 13:51] MED LIST changes: +AMIN30LI2 PO; +ASPI-1497 PO; +ATOR40TA70 PO; +FURO40TA5 PO; +GABA-529 PO; +INSU100I24 SQ; +INSU100V33 SQ; +METH-774 MT; +METO-539 MT; +PANT40TA51 PO; +POTA15TA11 PO
[2025-01-02] MEDS ORDERED: BACITRACIN ZINC OINT UDPKT TOP ONE (19:00)
[2025-01-02 19:02] LABS: BASOPHILS % 0.5 % (0.0-2.0); EOSINOPHILS % 0.4 % (0.0-5.0); HEMATOCRIT. 47.3 % (42.0-52.0); LYMPHOCYTES % 14.2 % (20.0-50.0); MEAN CORPUSCULAR HEMOGLOBIN 29.6 pg (28.0-32.0); MEAN CORPUSCULAR HGB CONC 33.7 g/dL (31.0-37.0); MEAN CORPUSCULAR VOLUME 87.8 fL (80.0-94.0); MEAN PLATELET VOLUME 8.4 fl (7.4-10.4); MONOCYTES % 6.9 % (2.0-8.0); PLATELET 303 x1000/uL (130-400); RED BLOOD CELL COUNT 5.39 mill/uL (4.7-6.1); RED CELL DISTRIBUTION WIDTH 13.8 % (11.6-14.6); WHITE BLOOD COUNT 7.7 x1000/uL (4.5-11.0)
[2025-01-02 19:08] LABS: CHLORIDE 90 mEq/L (98-107); SODIUM 134 mEq/L (136-145)
[2025-01-02 19:09] LABS: CALCIUM 9.4 mg/dL (8.7-10.4); CARBON DIOXIDE 34 mEq/L (21-32)
[2025-01-02 19:14] LABS: CREATININE 1.1 mg/dL (0.6-1.3); UREA NITROGEN BLOOD 6 mg/dL (9-23)
[2025-01-02 19:15] LABS: INR 0.9; PROTHROMBIN TIME 10.2 sec (9.6-11.0)
[2025-01-02 19:16] LABS: ALANINE AMINOTRANSFERASE 12 IU/L (10-49); ALBUMIN 4.9 g/dL (3.2-4.8); ASPARTATE AMINOTRANSFERASE 14 IU/L (<34); BILIRUBIN DIRECT 0.2 mg/dL (<=3.0); BILIRUBIN TOTAL 0.6 mg/dL (0.1-1.0); PROTEIN TOTAL 7.7 g/dL (6.0-8.3)
[2025-01-02 19:23] LABS: GLUCOSE 576 mg/dL (70-105); POTASSIUM 2.6 mEq/L (3.5-5.1)
[2025-01-02] MEDS: HYDROCODONE/ACETAMINOPHEN 5/325MG TABLET PO ONE (20:58)
[2025-01-02] MEDS: POTASSIUM CHLORIDE 20MEQ TABLET SR PO ONE (20:58)
[2025-01-02] MEDS: INSULIN LISPRO 100 UNITS/ML SUBCUT STA (21:12)
[2025-01-02] MEDS ORDERED: DEXTROSE 50% WATER 50ML SYRINGE IV PRN ×2 (21:15→21:45)
[2025-01-02] MEDS: TETANUS, DIPHTHERIA, PERTUSSIS VAC/PF 0.5ML (>10YR OLD) IM ONE (21:35)
[2025-01-02] MEDS: SODIUM CHLORIDE 0.9% 1,000 ML IV ONE (21:36)
[2025-01-02] MEDS ORDERED: ONDANSETRON HCL 4MG/2ML INJ IV PRN (21:45)
[2025-01-02] MEDS ORDERED: GUAIFENESIN 200MG/10ML SUGAR FREE UDC PO PRN (21:45)
[2025-01-02] MEDS ORDERED: ACETAMINOPHEN 325MG TABLET PO PRN (21:45)
[2025-01-02] MEDS ORDERED: DOCUSATE SODIUM 100MG CAPSULE PO PRN (21:45)
[2025-01-02] MEDS ORDERED: IPRATROPIUM/ALBUTEROL 0.5-3(2.5)MG/3ML NEB HHN PRN (21:45)
[2025-01-02] MEDS: KCL 10MEQ/50ML PREMIX 50 ML IV SCH (21:57)
[2025-01-02] MEDS: CEFTRIAXONE 2GM/50ML 50 ML IV ONE (21:57)
[2025-01-02] MEDS ORDERED: INSULIN GLARGINE 100 UNITS/ML SUBCUT SCH (22:00)
[2025-01-02] MEDS ORDERED: CEFTRIAXONE 2GM/50ML 50 ML IV NR (22:00)
[2025-01-02] MEDS: BACITRACIN ZINC OINT UDPKT TOP ONE (22:11)
[2025-01-02] MEDS ORDERED: BACITRACIN ZINC OINT UDPKT TOP NR (22:15)
[2025-01-02] MEDS: AMLODIPINE 5MG TABLET PO SCH (22:59)
[2025-01-02] MEDS: METOPROLOL TARTRATE 50MG TABLET PO SCH (23:02)
[2025-01-02 23:16] LABS: PHOSPHORUS 2.7 mg/dL (2.5-4.9)
[2025-01-02 23:17] LABS: BETA HYDROXYBUTYRATE 0.4 mMol/L (0.0-0.3)
[2025-01-02] MEDS: HYDRALAZINE 20MG/ML VIAL IV PRN (23:35)
[2025-01-03] MEDS: ASPIRIN 81MG EC TABLET PO SCH (00:25)
[2025-01-03] MEDS: GABAPENTIN 100MG CAPSULE PO SCH (00:25)
[2025-01-03] MEDS: ATORVASTATIN CALCIUM 40MG TABLET PO SCH (00:25)
[2025-01-03] MEDS: SODIUM CHLORIDE 0.9% 1,000 ML IV SCH (00:26)
[2025-01-03] MEDS: INSULIN LISPRO 100 UNITS/ML SUBCUT SCH (00:30)
[2025-01-03] MEDS: BLOOD SUGAR DIAGNOSTIC STRIP TEST SCH (00:32)
[2025-01-03] MEDS: INSULIN REGULAR (HUMULIN R) 1000UNITS/10ML VIAL SUBCUT NR (00:54)
[2025-01-03 01:00] VITALS: BP 147/100; PULSE 91; RESP 20; TEMP 36.6
[2025-01-03 01:53] LABS: TROPONIN I HIGH SENSITIVITY 19 ng/L (3.0-53)
[2025-01-03 01:56] LABS: CREATINE KINASE 103 IU/L (46-171)
[2025-01-03] MEDS: VANCOMYCIN 1.5GM PMX (XELLIA) 300 ML IV NR (01:58)
[2025-01-03 02:41] LABS: CLARITY URINE CLEAR (CLEAR); COLOR URINE YELLOW (YELLOW); GLUCOSE URINE 3+ (NEGATIVE); KETONES URINE TRACE (NEGATIVE); LEUKOCYTE ESTERASE URINE NEGATIVE (NEGATIVE); NITRITE URINE NEGATIVE (NEGATIVE); OCCULT BLOOD URINE NEGATIVE (NEGATIVE); PH URINE 7.5 (4.5-8.0); PROTEIN URINE NEGATIVE (NEGATIVE); SPECIFIC GRAVITY URINE 1.028 (1.005-1.030)
[2025-01-03 02:53] LABS: BACTERIA URINE NONE SEEN; RBC URINE 0-2 /hpf (0-2); SQUAMOUS EPITHELIAL CELL URINE NONE SEEN /lpf (RARE/1+); WBC URINE 0-2 /hpf (0-2)
[2025-01-03] MEDS: HYDROCODONE/ACETAMINOPHEN 5/325MG TABLET PO PRN ×2 (03:17→21:22)
[2025-01-03 03:30] LABS: *AMPHETAMINES SCREEN URINE NEGATIVE (NEGATIVE); *BARBITURATES SCREEN URINE NEGATIVE (NEGATIVE); *BENZODIAZEPINES SCREEN URINE NEGATIVE (NEGATIVE); *COCAINE SCREEN URINE NEGATIVE (NEGATIVE); METHADONE URINE SCREEN NEGATIVE (NEGATIVE); OPIATES URINE SCREEN NEGATIVE (NEGATIVE); PHENCYCLIDINE URINE SCREEN NEGATIVE (NEGATIVE)
[2025-01-03 03:31] LABS: CANNABINOID URINE SCREEN PRESUMPTIVE POSITIVE (NEGATIVE); ECSTASY MDMA SCREEN URINE NEGATIVE (NEGATIVE)
[2025-01-03 03:47] VITALS: BP 112/76; PULSE 86; RESP 18; TEMP 37.1; O2SAT 100
[2025-01-03] MEDS: KCL 20MEQ/100ML PREMIX 100 ML IV SCH (04:19)
[2025-01-03] MEDS: PIPERACILLIN/TAZO 3.375G/50ML 50 ML IV SCH (05:36)
[2025-01-03 06:07] LABS: BASOPHILS % 0.5 % (0.0-2.0); HEMATOCRIT. 41.3 % (42.0-52.0); HEMOGLOBIN. 13.9 g/dL (14.0-18.0); LYMPHOCYTES % 18.9 % (20.0-50.0); MEAN CORPUSCULAR HEMOGLOBIN 28.8 pg (28.0-32.0); MEAN CORPUSCULAR HGB CONC 33.7 g/dL (31.0-37.0); MEAN CORPUSCULAR VOLUME 85.6 fL (80.0-94.0); MEAN PLATELET VOLUME 8.2 fl (7.4-10.4); MONOCYTES % 8.8 % (2.0-8.0); NEUTROPHILS % 70.8 % (40.0-76.0); PLATELET 313 x1000/uL (130-400); RED BLOOD CELL COUNT 4.83 mill/uL (4.7-6.1); RED CELL DISTRIBUTION WIDTH 13.9 % (11.6-14.6); WHITE BLOOD COUNT 8.8 x1000/uL (4.5-11.0)
[2025-01-03 06:19] LABS: THYROID STIMULATING HORMONE 1.67 uIU/mL (0.55-4.78)
[2025-01-03] MEDS ORDERED: INSULIN LISPRO 100 UNITS/ML SUBCUT SCH (08:10)
[2025-01-03 08:18] VITALS: BP 147/95; PULSE 99; RESP 20; TEMP 36.6; O2SAT 100
[2025-01-03] MEDS ORDERED: BLOOD SUGAR DIAGNOSTIC STRIP TEST SCH (09:00)
[2025-01-03] MEDS ORDERED: METOPROLOL TARTRATE 50MG TABLET PO SCH (09:00)
[2025-01-03] MEDS: PANTOPRAZOLE SODIUM 40 MG/VIAL IV SCH (09:37)
[2025-01-03] MEDS ORDERED: IOHEXOL-300 100 ML BOTTLE ONE (09:50)
[2025-01-03 11:06] LABS: CHLORIDE 99 mEq/L (98-107); SODIUM 138 mEq/L (136-145)
[2025-01-03 11:07] LABS: CALCIUM 8.8 mg/dL (8.7-10.4); CARBON DIOXIDE 29 mEq/L (21-32)
[2025-01-03 11:12] LABS: CREATININE 0.8 mg/dL (0.6-1.3); UREA NITROGEN BLOOD < 5 mg/dL (9-23)
[2025-01-03 11:21] LABS: GLUCOSE 346 mg/dL (70-105)
[2025-01-03 11:39] VITALS: BP 142/95; PULSE 89; RESP 20; TEMP 36.8; O2SAT 100
[2025-01-03] MEDS: POTASSIUM CHLORIDE 20MEQ TABLET SR PO NR (15:04)
[2025-01-03 16:11] VITALS: BP 176/100; PULSE 84; RESP 20; TEMP 36.4; O2SAT 98
[2025-01-03 20:00] VITALS: BP 157/107; PULSE 94; RESP 18; TEMP 36.9; O2SAT 98
[2025-01-03] MEDS ORDERED: NALOXONE HCL 0.4MG/ML VIAL IV PRN (20:15)
[2025-01-03] MEDS: LOPERAMIDE HCL 2MG CAPSULE PO NR (20:21)
[2025-01-03] MEDS: SILVER SULFADIAZINE 1% CREAM 25GM TOP SCH (20:21)
[2025-01-03] MEDS: INSULIN GLARGINE 100 UNITS/ML SUBCUT SCH (21:24)
[2025-01-04] VITALS: BP 130/83; PULSE 83; RESP 18; TEMP 37.2; O2SAT 100
[2025-01-04 04:00] VITALS: BP 121/71; PULSE 72; RESP 18; TEMP 36.6; O2SAT 100
[2025-01-04] MEDS: INSULIN LISPRO 100 UNITS/ML SUBCUT SCH (07:40)
[2025-01-04 08:00] VITALS: BP 148/89; PULSE 77; RESP 20; TEMP 36.6; O2SAT 100
[2025-01-04 12:00] VITALS: BP 135/81; PULSE 76; RESP 18; TEMP 36.6; O2SAT 100
[2025-01-04 16:00] VITALS: BP 135/83; PULSE 85; RESP 18; TEMP 36.7; O2SAT 100
[2025-01-04 16:59] LABS: CHLORIDE 101 mEq/L (98-107); POTASSIUM 3.4 mEq/L (3.5-5.1); SODIUM 138 mEq/L (136-145)
[2025-01-04 17:00] LABS: CALCIUM 8.3 mg/dL (8.7-10.4); CARBON DIOXIDE 30 mEq/L (21-32)
[2025-01-04 17:05] LABS: CREATININE 0.7 mg/dL (0.6-1.3); GLUCOSE 257 mg/dL (70-105); UREA NITROGEN BLOOD < 5 mg/dL (9-23)
[2025-01-04] MEDS: POTASSIUM CHLORIDE 20MEQ TABLET SR PO NR (19:04)
[2025-01-04 20:00] VITALS: BP 149/96; PULSE 71; RESP 18; TEMP 36.7; O2SAT 100
[2025-01-05] VITALS: BP 144/101; PULSE 86; RESP 18; TEMP 37; O2SAT 99
[2025-01-05 08:00] VITALS: BP 150/93; PULSE 67; RESP 20; TEMP 36.1; O2SAT 100
[2025-01-05] MEDS: MULTIVITAMINS,THER W-MINERALS TABLET PO SCH (08:24)
[2025-01-05 11:34] LABS: CHLORIDE 103 mEq/L (98-107); POTASSIUM 3.6 mEq/L (3.5-5.1); SODIUM 140 mEq/L (136-145)
[2025-01-05 11:35] LABS: CALCIUM 8.2 mg/dL (8.7-10.4); CARBON DIOXIDE 28 mEq/L (21-32)
[2025-01-05 11:40] LABS: CREATININE 0.7 mg/dL (0.6-1.3); GLUCOSE 166 mg/dL (70-105); UREA NITROGEN BLOOD 7 mg/dL (9-23)
[2025-01-05 12:00] VITALS: BP 143/89; PULSE 75; RESP 20; TEMP 36.7; O2SAT 100
[2025-01-05] MEDS ORDERED: SILV20CR13 TP (15:07)
[2025-01-05] MEDS ORDERED: AMOX1TAB49 MT (15:13)
[2025-01-05 16:00] VITALS: BP 122/81; PULSE 84; RESP 18; TEMP 36.7; O2SAT 99
[2025-01-05 20:00] VITALS: BP 162/105; PULSE 100; RESP 20; TEMP 36.3; O2SAT 97
[2025-01-06] VITALS: BP 139/105; PULSE 103; RESP 20; TEMP 36.6; O2SAT 97
[2025-01-06 04:00] VITALS: BP 142/96; PULSE 71; RESP 20; TEMP 36.7; O2SAT 96
[2025-01-06 08:00] VITALS: BP 178/111; PULSE 77; RESP 20; TEMP 36.6; O2SAT 97
[2025-01-06 12:00] VITALS: BP 139/91; PULSE 70; RESP 20; TEMP 36.6; O2SAT 99
[2025-01-06 16:00] VITALS: BP 130/93; PULSE 89; RESP 20; TEMP 36.6; O2SAT 99
[2025-01-06 16:42] VITALS: BP 130/93; PULSE 89; TEMP 98.1; O2SAT 99
== END 2025-01-06 19:30 | disposition home health service (06) | DRG 935 ==
LOC: ER 13:51 → EDBEDREQ 21:18 → EDBEDREQTM 21:18 → EDBEDREQSVC 21:18 → ENRESERV 21:21 → 7WST 22:14
PROVIDERS: ADMIT Internal Medicine; ATTEND Internal Medicine
DX: T20.22XA Burn of second degree of lip(s), initial encounter (principal); E87.1 Hypo-osmolality and hyponatremia; K29.70 Gastritis, unspecified, without bleeding; E87.6 Hypokalemia; I10 Essential (primary) hypertension; E11.65 Type 2 diabetes mellitus with hyperglycemia; G89.29 Other chronic pain; M54.9 Dorsalgia, unspecified; I25.10 Atherosclerotic heart disease of native coronary artery without angina pectoris; J44.9 Chronic obstructive pulmonary disease, unspecified; K52.9 Noninfective gastroenteritis and colitis, unspecified; T20.20XA Burn of second degree of head, face, and neck, unspecified site, initial encounter; T20.24XA Burn of second degree of nose (septum), initial encounter; X08.8XXA Exposure to other specified smoke, fire and flames, initial encounter; Y93.89 Activity, other specified; Y92.89 Other specified places as the place of occurrence of the external cause; Y99.8 Other external cause status; Z85.46 Personal history of malignant neoplasm of prostate; Z79.4 Long term (current) use of insulin; Z79.51 Long term (current) use of inhaled steroids; Z79.82 Long term (current) use of aspirin; Z79.899 Other long term (current) drug therapy; Z98.1 Arthrodesis status; Z99.81 Dependence on supplemental oxygen
CPT/HCPCS: 36415; 70487; 71045; 74018; 74176; 80048; 80061; 80076; 80305; 81003; 82010; 82550; 82962; 83036; 83735; 84100; 84134; 84145; 84443; 84484; 85025; 86850; 86900; 90715; 93970; 97110; 97163; 97166; 97530; 99291; J0360; J0696; J1815; J2470; J2543; J3370; J3480; J7030; Q9967

== ENCOUNTER 2025-05-14 12:24 | Inpatient (IN) | payer MEDICARE, MEDICAID ==
[~2025-05-14] VITALS: Ht 193 cm; Wt 51.7 kg
[~2025-05-14 12:24] MED LIST changes: -BENA10TA74 PO; +CIPR-263 MT; -FURO40TA5 PO; -HYDR-4001 MT; -HYDR-4009 MT; -INSU100I24 SQ; +INSU100I28 SQ; -METF-414 MT; +METF-416 MT; -METH-774 MT; +TAMS-54 MT
[2025-05-14] MEDS: CEFTRIAXONE 1GM/50ML 50 ML IV ONE (13:44)
[2025-05-14] MEDS: SODIUM CHLORIDE 0.9% (SEPSIS BOLUS) IV ONE (13:44)
[2025-05-14 13:46] LABS: BASOPHILS % 0.2 % (0.0-2.0); EOSINOPHILS % 0.5 % (0.0-5.0); HEMATOCRIT. 55.2 % (42.0-52.0); HEMOGLOBIN. 18.6 g/dL (14.0-18.0); LYMPHOCYTES % 20.9 % (20.0-50.0); MEAN PLATELET VOLUME 7.6 fl (7.4-10.4); MONOCYTES % 4.9 % (2.0-8.0); NEUTROPHILS % 73.5 % (40.0-76.0); PLATELET 383 x1000/uL (130-400); RED BLOOD CELL COUNT 6.46 mill/uL (4.7-6.1); RED CELL DISTRIBUTION WIDTH 15.4 % (11.6-14.6)
[2025-05-14 13:57] LABS: INR 1.0
[2025-05-14] MEDS: ACETAMINOPHEN 1000MG/100ML 100 ML IV ONE (14:01)
[2025-05-14] MEDS: KETOROLAC 30MG/ML VIAL IV ONE (14:02)
[2025-05-14 14:11] LABS: ETHANOL BLOOD < 10 mg/dL (<10); TROPONIN I HIGH SENSITIVITY 43 ng/L (3.0-53); UREA NITROGEN BLOOD 29 mg/dL (9-23)
[2025-05-14 14:12] LABS: ASPARTATE AMINOTRANSFERASE 50 IU/L (<34); BILIRUBIN DIRECT 0.6 mg/dL (<=3.0)
[2025-05-14 14:13] LABS: BILIRUBIN TOTAL 1.3 mg/dL (0.1-1.0)
[2025-05-14 14:17] LABS: CREATININE 1.8 mg/dL (0.6-1.3); PROTEIN TOTAL 8.6 g/dL (6.0-8.3)
[2025-05-14 15:37] LABS: BG BASE EXCESS -3.5 mmol/L (-2.0-3.0); BG CARBOXYHEMOGLOBIN 0.7 % (0.5-1.5); BG DEOXYHEMOGLOBIN 0.7 % (0.0-5.0); BG FLOW(L/min) 5.00 L/min; BG FRACTION INSPIRED OXYGEN 40; BG HCO3 ACT 20.1 mmol/L (21.0-28.0); BG METHEMOGLOBIN 0.3 % (0.5-1.5); BG OXYGEN SATURATION 99.3 % (94.0-98.0); BG OXYHEMOGLOBIN 98.3 % (94.0-98.0); BG PCO2 33.0 mmHg (35.0-48.0); BG PH 7.402 (7.350-7.450); BG PO2 192.0 mmHg (83.0-108.0); BG SAMPLE SITE RIGHT BRACHIAL; BG TOTAL HEMOGLOBIN 18.4 g/dL (13.5-17.5); BG VENT MODE NASAL CANNULA
[2025-05-14] MEDS ORDERED: ONDANSETRON HCL 4MG/2ML INJ IV PRN (16:15)
[2025-05-14] MEDS ORDERED: IPRATROPIUM/ALBUTEROL 0.5-3(2.5)MG/3ML NEB HHN PRN (16:15)
[2025-05-14] MEDS ORDERED: DOCUSATE SODIUM 100MG CAPSULE PO PRN (16:15)
[2025-05-14] MEDS ORDERED: GUAIFENESIN 200MG/10ML SUGAR FREE UDC PO PRN (16:15)
[2025-05-14] MEDS ORDERED: DEXTROSE 50% WATER 50ML SYRINGE IV PRN (16:15)
[2025-05-14] MEDS ORDERED: ACETAMINOPHEN 325MG TABLET PO PRN ×2 (16:15)
[2025-05-14] MEDS: SODIUM CHLORIDE 0.9% 500 ML IV ONE (16:45)
[2025-05-14 20:00] VITALS: BP 114/83; PULSE 105; PULSE 98; RESP 20; TEMP 35.1; TEMP 35.1392; O2SAT 98
[2025-05-14] MEDS: BLOOD SUGAR DIAGNOSTIC STRIP TEST SCH (21:45)
[2025-05-14] MEDS: ENOXAPARIN 30MG/0.3ML SYR SUBCUT SCH (22:46)
[2025-05-14] MEDS: INSULIN LISPRO 100 UNITS/ML SUBCUT SCH (22:47)
[2025-05-14] MEDS: VANCOMYCIN 1.25GM/250ML 250 ML IV SCH (23:32)
[2025-05-15] VITALS (7 sets, daily range): BP systolic 100–109; BP diastolic 65–82; PULSE 70–111; RESP 18–24; TEMP 35.3–36.7; O2SAT 20–98
[2025-05-15] MEDS: FOLIC ACID 1 MG, THIAMINE HCL 100 MG, MVI, ADULT NO.1 10 ML in DEXTROSE 5% WATER 1,000 ML IV ONE (01:55)
[2025-05-15] MEDS: HYDROCODONE/ACETAMINOPHEN 10/325MG TABLET PO PRN (02:27)
[2025-05-15] MEDS ORDERED: NALOXONE HCL 0.4MG/ML VIAL IV PRN (02:30)
[2025-05-15] MEDS: PIPERACILLIN/TAZO 3.375G/50ML 50 ML IV SCH ×2 (02:56→09:04)
[2025-05-15] MEDS: POLYETHYLENE GLYCOL 3350 (17GM) 1 DOSE PACK PO SCH (09:03)
[2025-05-15] MEDS: TAMSULOSIN HCL 0.4MG SR CAPSULE PO SCH (09:04)
[2025-05-15 10:25] LABS: BASOPHILS % 0.1 % (0.0-2.0); EOSINOPHILS % 0.1 % (0.0-5.0); HEMATOCRIT. 49.2 % (42.0-52.0); HEMOGLOBIN. 16.5 g/dL (14.0-18.0); LYMPHOCYTES % 17.0 % (20.0-50.0); MEAN PLATELET VOLUME 7.6 fl (7.4-10.4); MONOCYTES % 7.3 % (2.0-8.0); NEUTROPHILS % 75.5 % (40.0-76.0); PLATELET 301 x1000/uL (130-400); RED BLOOD CELL COUNT 5.68 mill/uL (4.7-6.1); RED CELL DISTRIBUTION WIDTH 15.4 % (11.6-14.6)
[2025-05-15 10:27] LABS: CREATININE 1.5 mg/dL (0.6-1.3); TRIGLYCERIDE 71.0 mg/dL (0-150); UREA NITROGEN BLOOD 35.0 mg/dL (9-23)
[2025-05-15 10:28] LABS: LDL CHOLESTEROL 42.0 mg/dL (5-100)
[2025-05-15 10:29] LABS: PHOSPHORUS 4.3 mg/dL (2.5-4.9); T4 FREE 1.09 ng/dL (0.89-1.76)
[2025-05-15 10:34] LABS: TROPONIN I HIGH SENSITIVITY 257.0 ng/L (3.0-53)
[2025-05-15] MEDS: IPRATROPIUM/ALBUTEROL 0.5-3(2.5)MG/3ML NEB HHN SCH (13:35)
[2025-05-15] MEDS: BUDESONIDE 0.5MG/2ML NEB HHN SCH (13:35)
[2025-05-15] MEDS: SODIUM CHLORIDE 0.9% 500 ML IV ONE (13:52)
[2025-05-15] MEDS: BISACODYL 10MG SUPP PR SCH (15:20)
[2025-05-15] MEDS: NA PHOS,M-B/NA PHOS,DI-BA ENEMA 118ML PR SCH (15:20)
[2025-05-15] MEDS: SODIUM CHLORIDE 0.9% 1,000 ML IV SCH (15:21)
[2025-05-15 16:49] LABS: CLARITY URINE TURBID (CLEAR); COLOR URINE DARK YELLOW (YELLOW); GLUCOSE URINE NEGATIVE (NEGATIVE); KETONES URINE NEGATIVE (NEGATIVE); LEUKOCYTE ESTERASE URINE 2+ (NEGATIVE); NITRITE URINE NEGATIVE (NEGATIVE); OCCULT BLOOD URINE 1+ (NEGATIVE); PH URINE 5.0 (4.5-8.0); PROTEIN URINE 1+ (NEGATIVE); SPECIFIC GRAVITY URINE 1.015 (1.005-1.030); UROBILINOGEN URINE 0.2 E.U./dL (0.2-1.0)
[2025-05-15 16:54] LABS: SODIUM URINE RANDOM 22 mEq/L
[2025-05-15 17:01] LABS: *AMPHETAMINES SCREEN URINE NEGATIVE (NEGATIVE); *BARBITURATES SCREEN URINE NEGATIVE (NEGATIVE); *BENZODIAZEPINES SCREEN URINE NEGATIVE (NEGATIVE); *COCAINE SCREEN URINE NEGATIVE (NEGATIVE); BACTERIA URINE 3+; CANNABINOID URINE SCREEN PRESUMPTIVE POSITIVE (NEGATIVE); ECSTASY MDMA SCREEN URINE NEGATIVE (NEGATIVE); METHADONE URINE SCREEN NEGATIVE (NEGATIVE); OPIATES URINE SCREEN PRESUMPTIVE POSITIVE (NEGATIVE); PHENCYCLIDINE URINE SCREEN NEGATIVE (NEGATIVE); SQUAMOUS EPITHELIAL CELL URINE NONE SEEN /lpf (RARE/1+); WBC URINE 15-25 /hpf (0-2)
[2025-05-15 17:34] LABS: TROPONIN I HIGH SENSITIVITY 181 ng/L (3.0-53)
[2025-05-15] MEDS ORDERED: VANCOMYCIN 750MG PREMIX 150 ML IV SCH (18:00)
[2025-05-15 18:11] LABS: OSMOLALITY URINE 328 mOsm/kg (500-850)
[2025-05-15 19:40] LABS: CREATININE 1.4 mg/dL (0.6-1.3); UREA NITROGEN BLOOD 32 mg/dL (9-23)
[2025-05-15] MEDS: VANCOMYCIN 1GM PMX (XELLIA) 200 ML IV SCH (21:07)
[2025-05-15] MEDS: INSULIN GLARGINE 100 UNITS/ML SUBCUT SCH (21:08)
[2025-05-16] VITALS (9 sets, daily range): BP systolic 100–126; BP diastolic 70–82; PULSE 78–98; RESP 16–22; TEMP 35.6–37; O2SAT 94–98
[2025-05-16] MEDS: ASPIRIN 81MG TABLET PO SCH (09:20)
[2025-05-16] MEDS ORDERED: INSULIN GLARGINE 100 UNITS/ML SUBCUT SCH (10:00)
[2025-05-16 11:39] LABS: BASOPHILS % 0.1 % (0.0-2.0); EOSINOPHILS % 0.2 % (0.0-5.0); LYMPHOCYTES % 13.1 % (20.0-50.0); MEAN PLATELET VOLUME 7.6 fl (7.4-10.4); MONOCYTES % 7.8 % (2.0-8.0); NEUTROPHILS % 78.8 % (40.0-76.0); PLATELET 261 x1000/uL (130-400); RED BLOOD CELL COUNT 4.63 mill/uL (4.7-6.1); RED CELL DISTRIBUTION WIDTH 14.9 % (11.6-14.6)
[2025-05-16 11:56] LABS: CREATININE 0.9 mg/dL (0.6-1.3); UREA NITROGEN BLOOD 24 mg/dL (9-23)
[2025-05-16 11:58] LABS: ASPARTATE AMINOTRANSFERASE 176 IU/L (<34); BILIRUBIN DIRECT 0.3 mg/dL (<=3.0); BILIRUBIN TOTAL 0.6 mg/dL (0.1-1.0); PHOSPHORUS 2.2 mg/dL (2.5-4.9)
[2025-05-16 12:00] LABS: HEMOGLOBIN. 13.3 g/dL (14.0-18.0); PROTEIN TOTAL 5.3 g/dL (6.0-8.3); TROPONIN I HIGH SENSITIVITY 67 ng/L (3.0-53)
[2025-05-16 12:01] LABS: HEMATOCRIT. 38.8 % (42.0-52.0)
[2025-05-16 13:04] LABS: HEPATITIS A AB IGM NEGATIVE (Negative); HEPATITIS B CORE AB IGM NEGATIVE (Negative)
[2025-05-16 13:05] LABS: HEPATITIS C AB REACTIVE (Pos) (Negative)
[2025-05-16] MEDS: POTASSIUM CHLORIDE 20MEQ/PACKET PO SCH (14:18)
[2025-05-16] MEDS: VANCOMYCIN 750MG/150ML (BAXTER) IV SCH (17:08)
[2025-05-16] MEDS: DOCUSATE SODIUM 100MG CAPSULE PO SCH (20:46)
[2025-05-16 21:12] LABS: ASPARTATE AMINOTRANSFERASE 141 IU/L (<34); BILIRUBIN DIRECT 0.3 mg/dL (<=3.0); BILIRUBIN TOTAL 0.6 mg/dL (0.1-1.0); PROTEIN TOTAL 5.6 g/dL (6.0-8.3)
[2025-05-17] VITALS (9 sets, daily range): BP systolic 99–123; BP diastolic 59–84; PULSE 78–102; RESP 18–20; TEMP 36–36.9; O2SAT 93–100
[2025-05-17 07:02] LABS: BASOPHILS % 0.2 % (0.0-2.0); EOSINOPHILS % 0.5 % (0.0-5.0); HEMATOCRIT. 40.2 % (42.0-52.0); HEMOGLOBIN. 13.6 g/dL (14.0-18.0); LYMPHOCYTES % 20.0 % (20.0-50.0); MEAN PLATELET VOLUME 7.2 fl (7.4-10.4); MONOCYTES % 10.4 % (2.0-8.0); NEUTROPHILS % 68.9 % (40.0-76.0); PLATELET 240 x1000/uL (130-400); RED BLOOD CELL COUNT 4.68 mill/uL (4.7-6.1); RED CELL DISTRIBUTION WIDTH 15.4 % (11.6-14.6)
[2025-05-17 15:53] LABS: CREATININE 0.8 mg/dL (0.6-1.3); UREA NITROGEN BLOOD 10 mg/dL (9-23)
[2025-05-17 15:55] LABS: ASPARTATE AMINOTRANSFERASE 104 IU/L (<34); BILIRUBIN DIRECT 0.3 mg/dL (<=3.0); BILIRUBIN TOTAL 0.6 mg/dL (0.1-1.0); PHOSPHORUS 1.7 mg/dL (2.5-4.9); PROTEIN TOTAL 6.0 g/dL (6.0-8.3)
[2025-05-18] VITALS (10 sets, daily range): BP systolic 101–141; BP diastolic 71–95; PULSE 87–104; RESP 14–22; TEMP 35.9–36.8; O2SAT 96–100
[2025-05-18] MEDS: LACTULOSE 20G/30ML UDC PO PRN (05:22)
[2025-05-18 07:30] LABS: BASOPHILS % 0.1 % (0.0-2.0); EOSINOPHILS % 0.6 % (0.0-5.0); HEMATOCRIT. 38.2 % (42.0-52.0); HEMOGLOBIN. 13.0 g/dL (14.0-18.0); LYMPHOCYTES % 19.6 % (20.0-50.0); MEAN PLATELET VOLUME 7.4 fl (7.4-10.4); MONOCYTES % 7.1 % (2.0-8.0); NEUTROPHILS % 72.6 % (40.0-76.0); PLATELET 259 x1000/uL (130-400); RED BLOOD CELL COUNT 4.51 mill/uL (4.7-6.1); RED CELL DISTRIBUTION WIDTH 15.7 % (11.6-14.6)
[2025-05-18 07:40] LABS: CREATININE 0.7 mg/dL (0.6-1.3)
[2025-05-18 07:41] LABS: UREA NITROGEN BLOOD 8 mg/dL (9-23)
[2025-05-18 07:46] LABS: CREATININE 0.7 mg/dL (0.6-1.3); UREA NITROGEN BLOOD 8 mg/dL (9-23)
[2025-05-18 07:48] LABS: ASPARTATE AMINOTRANSFERASE 66 IU/L (<34); BILIRUBIN DIRECT 0.2 mg/dL (<=3.0); BILIRUBIN TOTAL 0.4 mg/dL (0.1-1.0); PHOSPHORUS 1.5 mg/dL (2.5-4.9); PROTEIN TOTAL 5.6 g/dL (6.0-8.3)
[2025-05-18] MEDS: SODIUM PHOSPHATE 30 MMOL in DEXT 5% WATER 490 ML IV NR (15:02)
[2025-05-19] VITALS (9 sets, daily range): BP systolic 100–126; BP diastolic 68–82; PULSE 67–99; RESP 16–19; TEMP 36–36.9; O2SAT 95–100
[2025-05-19 08:15] LABS: BASOPHILS % 0.2 % (0.0-2.0); EOSINOPHILS % 0.6 % (0.0-5.0); HEMATOCRIT. 41.0 % (42.0-52.0); HEMOGLOBIN. 13.7 g/dL (14.0-18.0); LYMPHOCYTES % 24.9 % (20.0-50.0); MEAN PLATELET VOLUME 7.2 fl (7.4-10.4); MONOCYTES % 13.6 % (2.0-8.0); NEUTROPHILS % 60.7 % (40.0-76.0); PLATELET 267 x1000/uL (130-400); RED BLOOD CELL COUNT 4.73 mill/uL (4.7-6.1); RED CELL DISTRIBUTION WIDTH 15.5 % (11.6-14.6)
[2025-05-19 08:54] LABS: CREATININE 0.6 mg/dL (0.6-1.3); UREA NITROGEN BLOOD 6 mg/dL (9-23)
[2025-05-19 08:56] LABS: PHOSPHORUS 2.0 mg/dL (2.5-4.9)
[2025-05-19 13:35] LABS: CREATININE 0.6 mg/dL (0.6-1.3)
[2025-05-19 13:36] LABS: UREA NITROGEN BLOOD 8 mg/dL (9-23)
== END 2025-05-19 22:30 | disposition hospice, home (50) | DRG 871 ==
LOC: ER 13:47 → 8WST 14:31 → EDBEDREQTM 14:37 → EDBEDREQ 14:37 → ENRESERV 17:39
PROVIDERS: ADMIT Hospitalist; ATTEND Hospitalist
DX: A41.9 Sepsis, unspecified organism (principal); E43 Unspecified severe protein-calorie malnutrition; G92.8 Other toxic encephalopathy; I21.A1 Myocardial infarction type 2; N17.9 Acute kidney failure, unspecified; J44.1 Chronic obstructive pulmonary disease with (acute) exacerbation; K56.7 Ileus, unspecified; Z68.1 Body mass index [BMI] 19.9 or less, adult; E87.20 Acidosis, unspecified; N13.6 Pyonephrosis; I69.351 Hemiplegia and hemiparesis following cerebral infarction affecting right dominant side; E22.2 Syndrome of inappropriate secretion of antidiuretic hormone; J93.9 Pneumothorax, unspecified; R65.20 Severe sepsis without septic shock; D75.1 Secondary polycythemia; E78.5 Hyperlipidemia, unspecified; R62.7 Adult failure to thrive; E11.22 Type 2 diabetes mellitus with diabetic chronic kidney disease; K74.60 Unspecified cirrhosis of liver; E11.65 Type 2 diabetes mellitus with hyperglycemia; N18.9 Chronic kidney disease, unspecified; E86.0 Dehydration; N40.0 Benign prostatic hyperplasia without lower urinary tract symptoms; E87.6 Hypokalemia; E83.39 Other disorders of phosphorus metabolism; F17.210 Nicotine dependence, cigarettes, uncomplicated; I12.9 Hypertensive chronic kidney disease with stage 1 through stage 4 chronic kidney disease, or unspecified chronic kidney disease; I49.3 Ventricular premature depolarization; D64.9 Anemia, unspecified; Z51.5 Encounter for palliative care; Z99.81 Dependence on supplemental oxygen; Z74.01 Bed confinement status; Z99.3 Dependence on wheelchair; Z79.899 Other long term (current) drug therapy; Z85.46 Personal history of malignant neoplasm of prostate; Z98.1 Arthrodesis status; Z90.79 Acquired absence of other genital organ(s)
CPT/HCPCS: 36415; 36600; 71045; 74018; 76700; 80048; 80061; 80076; 80202; 80305; 80320; 81003; 82010; 82105; 82375; 82533; 82805; 82962; 83036; 83605; 83735; 83930; 83935; 84100; 84134; 84145; 84153; 84295; 84300; 84439; 84443; 84484; 85025; 86705; 86709; 87340; 93005; 94070; 94640; 94664; 94760; 96365; 97162; 97166; 99291; A4606; J0696; J1650; J1815; J1885; J2543; J3373; J3411; J3490; J7030; J7060; J7070; J7626; G0480; J0131